=== PATIENT | male | born 1960 | race African-American/Black ===

== ENCOUNTER 2016-12-26 09:35 | Inpatient (IN) | payer MEDICARE, OTHER ==
[~2016-12-26] VITALS: Ht 188 cm; Wt 126.1 kg
[2016-12-26] MEDS ORDERED: METF500T4 PO (09:41)
[2016-12-26] MEDS ORDERED: GABA-531 PO ×2 (09:41→14:14)
[2016-12-26] MEDS ORDERED: BENA20TA3 PO (09:41)
[2016-12-26] MEDS ORDERED: ASPI-1159 PO (09:41)
[2016-12-26] MEDS ORDERED: GLIM4TAB2 PO (09:41)
[2016-12-26] MEDS ORDERED: SODIUM CHLORIDE 0.9% 1,000 ML IV ONE (09:43)
[2016-12-26 09:59] LABS: BASOPHILS % 0.3 % (0.0-2.0); EOSINOPHILS % 1.4 % (0.0-5.0); HEMATOCRIT. 37.9 % (42.0-52.0); HEMOGLOBIN. 12.9 g/dL (14.0-18.0); LYMPHOCYTES % 17.6 % (20.0-50.0); MEAN CORPUSCULAR HEMOGLOBIN 28.7 pg (28.0-32.0); MEAN CORPUSCULAR VOLUME 84.6 fL (80.0-94.0); MONOCYTES % 7.5 % (2.0-8.0); NEUTROPHILS % 73.2 % (40.0-76.0); PLATELET 181 x1000/uL (130-400); RED BLOOD CELL COUNT 4.48 mill/uL (4.7-6.1); RED CELL DISTRIBUTION WIDTH 13.3 % (11.6-14.6)
[2016-12-26 10:13] LABS: CARBON DIOXIDE 26 mEq/L (21-32); CHLORIDE 106 mEq/L (98-107); TROPONIN I < 0.02 ng/mL (0.00-0.04)
[2016-12-26 10:15] LABS: INR 1.1; PARTIAL THROMBOPLASTIN TIME 23.9 sec (23.4-31.0); PROTHROMBIN TIME 11.3 sec (9.4-11.6)
[2016-12-26] MEDS ORDERED: MECLIZINE 25MG TABLET PO ONE (10:15)
[2016-12-26 10:31] LABS: CLARITY URINE CLEAR (CLEAR); COLOR URINE YELLOW (YELLOW); GLUCOSE URINE NEGATIVE (NEGATIVE); KETONES URINE NEGATIVE (NEGATIVE); LEUKOCYTE ESTERASE URINE NEGATIVE (NEGATIVE); NITRITE URINE NEGATIVE (NEGATIVE); OCCULT BLOOD URINE NEGATIVE (NEGATIVE); PROTEIN URINE NEGATIVE (NEGATIVE); SPECIFIC GRAVITY URINE 1.009 (1.005-1.030); UROBILINOGEN URINE 0.2 E.U./dL (0.2-1.0)
[2016-12-26] MEDS ORDERED: POTASSIUM CHLORIDE 20MEQ TABLET SR PO ONE (11:00)
[2016-12-26 11:03] LABS: *AMPHETAMINES SCREEN URINE NEGATIVE (NEGATIVE); *BARBITURATES SCREEN URINE NEGATIVE (NEGATIVE); *BENZODIAZEPINES SCREEN URINE NEGATIVE (NEGATIVE); *COCAINE SCREEN URINE NEGATIVE (NEGATIVE); CANNABINOID URINE SCREEN NEGATIVE (NEGATIVE); METHADONE URINE SCREEN NEGATIVE (NEGATIVE); OPIATES URINE SCREEN NEGATIVE (NEGATIVE); PHENCYCLIDINE URINE SCREEN NEGATIVE (NEGATIVE)
[2016-12-26] MEDS ORDERED: METF10002 PO (14:12)
[2016-12-26] MEDS ORDERED: ACETAMINOPHEN 325MG TABLET PO PRN (14:15)
[2016-12-26] MEDS ORDERED: BLOO-1686 MC (14:15)
[2016-12-26] MEDS ORDERED: ONDANSETRON HCL 4MG/2ML VIAL IV PRN (14:15)
[2016-12-26] MEDS ORDERED: DOCUSATE SODIUM 100MG CAPSULE PO PRN (14:15)
[2016-12-26] MEDS ORDERED: CLONIDINE 0.1MG TABLET PO PRN (14:15)
[2016-12-26] MEDS ORDERED: IPRATROPIUM/ALBUTEROL 0.5-3(2.5)MG/3ML NEB INH PRN (14:15)
[2016-12-26] MEDS ORDERED: MAGNESIUM/ALUMINUM HYDROXIDE/SIMETHICONE 30ML UDC PO PRN (14:15)
[2016-12-26 14:16] VITALS: BP 149/83
[2016-12-26 14:24] VITALS: BP 149/83
[2016-12-26 16:00] VITALS: BP 134/67
[2016-12-26] MEDS: GABAPENTIN 300MG CAPSULE PO SCH (16:56)
[2016-12-26] MEDS: BENAZEPRIL 20MG TABLET PO SCH (16:57)
[2016-12-26] MEDS: METFORMIN HCL 500MG TABLET PO SCH (16:58)
[2016-12-26] MEDS: ENOXAPARIN 30MG/0.3ML SYR SUBCUT SCH (16:58)
[2016-12-26 18:49] LABS: CARBON DIOXIDE 25 mEq/L (21-32); CHLORIDE 110 mEq/L (98-107)
[2016-12-26 20:00] VITALS: BP 127/76
[2016-12-26] MEDS: AMLODIPINE 5MG TABLET PO SCH (20:47)
[2016-12-27] VITALS: BP 102/57
[2016-12-27 00:10] LABS: CREATINE KINASE 233 IU/L (39-308); CREATINE KINASE MB FRACTION 0.8 ng/mL (0.5-3.6); TROPONIN I < 0.02 ng/mL (0.00-0.04)
[2016-12-27 04:00] VITALS: BP 110/56
[2016-12-27] MEDS: ENOXAPARIN 30MG/0.3ML SYR SUBCUT SCH ×3 (06:07→21:31)
[2016-12-27 07:21] LABS: BASOPHILS % 0.4 % (0.0-2.0); HEMATOCRIT. 35.7 % (42.0-52.0); HEMOGLOBIN. 12.4 g/dL (14.0-18.0); LYMPHOCYTES % 26.3 % (20.0-50.0); MEAN CORPUSCULAR HEMOGLOBIN 29.2 pg (28.0-32.0); MEAN CORPUSCULAR VOLUME 84.2 fL (80.0-94.0); MEAN PLATELET VOLUME 8.4 fl (7.4-10.4); MONOCYTES % 7.3 % (2.0-8.0); PLATELET 160 x1000/uL (130-400); RED BLOOD CELL COUNT 4.24 mill/uL (4.7-6.1); RED CELL DISTRIBUTION WIDTH 13.4 % (11.6-14.6)
[2016-12-27] MEDS: GLIMEPIRIDE 4MG TABLET PO SCH (07:57)
[2016-12-27] MEDS: METFORMIN HCL 500MG TABLET PO SCH ×2 (07:57→16:55)
[2016-12-27 08:00] VITALS: BP 117/66
[2016-12-27 08:35] LABS: CREATINE KINASE 174 IU/L (39-308); CREATINE KINASE MB FRACTION 1.1 ng/mL (0.5-3.6); HDL CHOLESTEROL 31 mg/dL (40-59); LDL CHOLESTEROL 100 mg/dL (5-100); TROPONIN I < 0.02 ng/mL (0.00-0.04)
[2016-12-27] MEDS: GABAPENTIN 300MG CAPSULE PO SCH ×3 (08:50→16:55)
[2016-12-27] MEDS: BENAZEPRIL 20MG TABLET PO SCH ×2 (08:50→21:00)
[2016-12-27] MEDS: ASPIRIN 81MG EC TABLET PO SCH (08:51)
[2016-12-27] MEDS: AMLODIPINE 5MG TABLET PO SCH ×2 (08:51→21:00)
[2016-12-27] MEDS ORDERED: BENAZEPRIL 20MG TABLET PO SCH (09:00)
[2016-12-27 12:00] VITALS: BP_SYST 120; BP_SYST 125; BP_SYST 132; BP_DIAS 70; BP_DIAS 73; BP_DIAS 78
[2016-12-27 16:00] VITALS: BP 128/74
[2016-12-27 20:00] VITALS: BP_SYST 103; BP_SYST 110; BP_SYST 116; BP_DIAS 69; BP_DIAS 74; BP_DIAS 78
[2016-12-28] VITALS: BP 108/80
[2016-12-28 04:00] VITALS: BP 123/75
[2016-12-28 07:27] LABS: BASOPHILS % 0.3 % (0.0-2.0); EOSINOPHILS % 1.3 % (0.0-5.0); HEMATOCRIT. 38.4 % (42.0-52.0); HEMOGLOBIN. 13.3 g/dL (14.0-18.0); LYMPHOCYTES % 23.3 % (20.0-50.0); MEAN CORPUSCULAR HEMOGLOBIN 29.2 pg (28.0-32.0); MEAN CORPUSCULAR VOLUME 84.2 fL (80.0-94.0); MEAN PLATELET VOLUME 8.8 fl (7.4-10.4); MONOCYTES % 6.2 % (2.0-8.0); NEUTROPHILS % 68.9 % (40.0-76.0); PLATELET 167 x1000/uL (130-400); RED BLOOD CELL COUNT 4.56 mill/uL (4.7-6.1); RED CELL DISTRIBUTION WIDTH 12.8 % (11.6-14.6)
[2016-12-28 07:56] LABS: CARBON DIOXIDE 30 mEq/L (21-32); CHLORIDE 109 mEq/L (98-107)
[2016-12-28 08:00] VITALS: BP_SYST 113; BP_SYST 120; BP_SYST 134; BP_DIAS 61; BP_DIAS 74; BP_DIAS 80
[2016-12-28] MEDS ORDERED: DEXTROSE 50% WATER 50ML SYRINGE IV PRN (08:45)
[2016-12-28] MEDS: ASPIRIN 81MG EC TABLET PO SCH (08:55)
[2016-12-28] MEDS: GABAPENTIN 300MG CAPSULE PO SCH (08:55)
[2016-12-28] MEDS: GLIMEPIRIDE 4MG TABLET PO SCH (08:55)
[2016-12-28] MEDS: METFORMIN HCL 500MG TABLET PO SCH (08:55)
[2016-12-28] MEDS: BENAZEPRIL 20MG TABLET PO SCH (08:55)
[2016-12-28] MEDS: AMLODIPINE 5MG TABLET PO SCH (08:56)
[2016-12-28] MEDS ORDERED: BLOOD SUGAR DIAGNOSTIC STRIP TEST SCH (11:45)
[2016-12-28 12:00] VITALS: BP 112/69
[2016-12-28] MEDS ORDERED: INSULIN LISPRO 100 UNITS/ML SUBCUT SCH (12:15)
[2016-12-28 13:29] VITALS: BP 112/69
== END 2016-12-28 14:05 | disposition home or self-care (01) | DRG 312 ==
LOC: ER 09:45 → 5WST 10:17 → EDBEDREQTM 10:18 → EDBEDREQ 10:18 → ENRESERV 12:22 → ER 13:51
PROVIDERS: ADMIT Internal Medicine; ATTEND Internal Medicine
DX: R55 Syncope and collapse (principal); E11.40 Type 2 diabetes mellitus with diabetic neuropathy, unspecified; E87.6 Hypokalemia; I10 Essential (primary) hypertension; R42 Dizziness and giddiness; E78.00 Pure hypercholesterolemia, unspecified; M19.90 Unspecified osteoarthritis, unspecified site; G43.909 Migraine, unspecified, not intractable, without status migrainosus; E78.5 Hyperlipidemia, unspecified; Z79.82 Long term (current) use of aspirin; Z79.84 Long term (current) use of oral hypoglycemic drugs; Z79.899 Other long term (current) drug therapy; Z82.49 Family history of ischemic heart disease and other diseases of the circulatory system; Z90.49 Acquired absence of other specified parts of digestive tract; Z87.891 Personal history of nicotine dependence
CPT/HCPCS: 36415; 71010; 80048; 80053; 80061; 80305; 81003; 82550; 82553; 82962; 83735; 83880; 84443; 84484; 85025; 85610; 85730; 93005; 93306; 93880; 93970; 96360; 97161; 99285; J1650; J7030; J8597